=== PATIENT | female | born 1950 | race Caucasian/White ===

== ENCOUNTER 2018-01-11 17:23 | Observation (INO) ==
[2018-01-11] MEDS ORDERED: PROMETHAZINE 25 MG/1 ML VIAL IM STA (18:27)
[2018-01-11] MEDS ORDERED: PROMETHAZINE 25 MG/1 ML VIAL ONE (18:33)
[2018-01-11 18:37] LABS: Basophils # 0.1 10*3/uL (0.0-0.2); Basophils % 0.6 % (0.0-0.8); Eosinophils # 0.1 10*3/uL (0.0-0.87); Eosinophils % 1.1 % (0.00-10.9); Hematocrit 43.6 VOL% (35.7-47.0); Hemoglobin 15.2 GM/DL (12.0-16.0); Immature Granulocytes % 0.4 %; Immature Granulocytes Absolute 0.05 #; Lymphocytes # 2.7 10*3/uL (1.4-4.0); Lymphocytes % 21.8 % (21.3-54.2); Mean Corpuscular HGB Conc 34.9 GM/DL (32-36); Mean Corpuscular Hemoglobin 31 PG (27-34); Mean Corpuscular Volume 89.5 FL (87-102); Mean Platelet Volume 10.2 FL (9.6-12.0); Monocytes # 0.9 10*3/uL (0.11-0.8); Monocytes % 6.9 % (1.7-12.7); Neutrophils # 8.6 10*3/uL (1.4-7.4); Neutrophils % 69.2 % (38.7-73.9); Platelet Count 372 T/CUMM (130-400); Red Blood Count 4.87 MC/CUMM (3.8-5.5); Red Cell Distribution Width 13.1 % (9.3-17.3); White Blood Count 12.4 T/CUMM (4-12)
[2018-01-11 18:46] LABS: INR 0.9; PT Patient Result 9.7 SECS
[2018-01-11 19:11] LABS: Alanine Aminotransferase 28 U/L (13-56); Albumin 4.4 G/DL (3.4-5.0); Alkaline Phosphatase 112 U/L (45-117); Aspartate Amino Transferase 25 U/L (0-37); Blood Urea Nitrogen 23 MG/DL (7-18); Calcium 10.2 MG/DL (8.5-10.1); Glucose 104 MG/DL (74-106); Osmolality,Calculated 282.4 MOS/KG (273-304); Potassium 3.7 MMOL/L (3.5-5.1); Sodium 140 MMOL/L (136-145); Total Protein 8.3 G/DL (6.4-8.3); Troponin I Only < 0.015 NG/ML (0.00-0.045)
[2018-01-11] MEDS ORDERED: ALUM/MAG/SIMETH/LIDO VISC 1:1 30 ML BOTTLE PO ONE (19:40)
[2018-01-11] MEDS ORDERED: ONDANSETRON 4 MG/2 ML VIAL ONE (19:40)
[2018-01-11] MEDS ORDERED: ONDANSETRON 4 MG/2 ML VIAL IV STA (19:47)
[2018-01-11] MEDS ORDERED: ALUM/MAG/SIMETH/LIDO VISC 1:1 30 ML BOTTLE PO STA (19:47)
[2018-01-11] MEDS ORDERED: ACETAMINOPHEN 325 MG TABLET PO PRN (20:00)
[2018-01-11] MEDS: SODIUM CHLORIDE 0.45% 1,000 ML IV SCH (22:02)
[2018-01-11] MEDS: PANTOPRAZOLE 40 MG TABLET PO SCH (22:04)
[2018-01-12] MEDS: ONDANSETRON 4 MG/2 ML VIAL IV PRN ×2 (00:57→06:54)
[2018-01-12] MEDS: SODIUM CHLORIDE 0.45% 1,000 ML IV SCH ×3 (05:36→20:57)
[2018-01-12] MEDS: PANTOPRAZOLE 40 MG TABLET PO SCH ×2 (08:04→20:57)
[2018-01-12] MEDS ORDERED: SODIUM CHLORIDE 0.65% NASAL SPRAY 45 ML BOTTLE BOTH NARES PRN (12:10)
[2018-01-12] MEDS ORDERED: BENZOCAINE/MENTHOL LOZENGE 18/BOX PO PRN (12:10)
[2018-01-12] MEDS ORDERED: POLYETHYLENE GLYCOL POWDER 17 GM PACK PO PRN (21:39)
[2018-01-12] MEDS ORDERED: BISACODYL 10 MG SUPP RECTAL ONE (22:00)
[2018-01-13 04:23] LABS: Basophils # 0.1 10*3/uL (0.0-0.2); Eosinophils # 0.2 10*3/uL (0.0-0.87); Eosinophils % 2.4 % (0.00-10.9); Hematocrit 36.2 VOL% (35.7-47.0); Hemoglobin 12.1 GM/DL (12.0-16.0); Immature Granulocytes % 0.3 %; Immature Granulocytes Absolute 0.02 #; Lymphocytes # 2.8 10*3/uL (1.4-4.0); Lymphocytes % 35.4 % (21.3-54.2); Mean Corpuscular HGB Conc 33.4 GM/DL (32-36); Mean Corpuscular Hemoglobin 31 PG (27-34); Mean Corpuscular Volume 93.1 FL (87-102); Mean Platelet Volume 10.6 FL (9.6-12.0); Monocytes # 0.8 10*3/uL (0.11-0.8); Monocytes % 9.4 % (1.7-12.7); Neutrophils # 4.1 10*3/uL (1.4-7.4); Neutrophils % 51.5 % (38.7-73.9); Platelet Count 273 T/CUMM (130-400); Red Blood Count 3.89 MC/CUMM (3.8-5.5); Red Cell Distribution Width 13.1 % (9.3-17.3)
[2018-01-13 04:52] LABS: Calcium 8.5 MG/DL (8.5-10.1); Osmolality,Calculated 280.3 MOS/KG (273-304); Potassium 3.9 MMOL/L (3.5-5.1)
[2018-01-13] MEDS: PANTOPRAZOLE 40 MG TABLET PO SCH (08:26)
[2018-01-13] MEDS: SODIUM CHLORIDE 0.45% 1,000 ML IV SCH (11:17)
[2018-01-13] MEDS ORDERED: PROPOFOL 200 MG/20 ML VIAL IV ONE (12:49)
[2018-01-13] MEDS ORDERED: LIDOCAINE 2% 5 ML VIAL ONE (12:49)
[2018-01-13 14:01] VITALS: BP 135/64
== END 2018-01-13 16:10 | disposition home or self-care (01) ==
LOC: N.EDINP 17:23 → N.ED 17:23 → N.3E 20:59
PROVIDERS: ADMIT Internal Medicine; ATTEND Internal Medicine